=== PATIENT | female | born 1940 | race Caucasian/White ===

== ENCOUNTER 2017-09-01 13:31 | Emergency (ER) | payer MEDICARE ==
[~2017-09-01] VITALS: Ht 167.6 cm; Wt 68.0 kg
[~2017-09-01 13:31] MED LIST: APIX5TAB PO; ARMO60TA PO; ASPI325T PO; CALTTAB PO; CO Q100C PO; CODCAP PO; METO25 PO; OSTETAB3 PO; RANI300T PO; SIMV20 PO; THYR15 PO; VITA-83 PO; ZYRT10TA12 PO
[2017-09-01] MEDS ORDERED: IOHEXOL 350 MG/ML 10 ML VIAL (for RAD DIAG) IVCONTRAST ONE (13:32)
[2017-09-01 13:34] VITALS: BP 147/88; PULSE 106; RESP 20; TEMP 99.4; O2SAT 100
--- NOTE | 2017-09-01 14:42 | RADRPT ---
EXAM DATE/TIME: 09/01/2017 14:30 [facility] COMPARISON: CHEST PA & LAT, April 30, 2014, 12:58. INDICATIONS : Left shoulder and chest pain. MEDICAL HISTORY : None. SURGICAL HISTORY : Abdominal aortic aneurysm repair. ENCOUNTER: Initial ACUITY: 1 day PAIN SCORE: 10/10 LOCATION: Bilateral chest FINDINGS: PA and lateral views of the chest demonstrate the lungs to be symmetrically aerated without evidence of mass, infiltrate or effusion. The cardiomediastinal contours are unremarkable. Osseous structure s are intact. A scoliotic degenerative spine. CONCLUSION: No acute disease. Deng Orta Jr., MD on September 01, 2017 at 14:39 Board Certified Radiologist. This report was verified electronically.
--- NOTE | 2017-09-01 16:01 | PD ---
HPI Chief Complaint: Chest Pain Time Seen by Provider: 15:49 Travel History International Travel<30 days: No Contact w/Intl Traveler<30days: No Traveled to known affect area: No History of Present Illness HPI 77 year old female with history of afib s/p ablation and hypothyroidism presents to the ED for evaluation of left sided chest pain that radiates into her neck and her arm. She reports that 4 days ago, she was working out and woke up the next day with a pain in her left neck. She thought it was due to her work out, but it didn't seem like typical muscle pain as it came and went varying in intensity. The pain has increased and now involves her anterior left chest, shoulder, and neck. At rest it is a 4/10 but with movement or touch it is a 10/10, unbearable sharp pain. It is not accompanied with shortness of breath, lightheaded sensation, diaphoreses, or nausea. Denies any recent illness, fever, or chills. She has no other symptoms to report. PFSH Past Medical History Hx Anticoagulant Therapy: Yes (ELIQUIS) Atrial Fibrillation: Yes Blood Disorders: No Anxiety: No Depression: No Heart Rhythm Problems: Yes Cancer: Yes (SKIN CANCER) Cardiac Catheterization: No Cardiovascular Problems: Yes (CARDIOGENIC ABLATIONS) High Cholesterol: Yes Chemotherapy: No Chest Pain: Yes Congestive Heart Failure: No Cerebrovascular Accident: No Diabetes: No Diminished Hearing: No Endocrine: No Genitourinary: No Hypertension: No Immune Disorder: No Musculoskeletal: No Neurologic: No Psychiatric: No Reproductive: No Respiratory: No Immunizations Current: Yes Myocardial Infarction: No Radiation Therapy: No Sickle Cell Disease: No Thyroid Disease: Yes (hypo) Menopausal: Yes : 2 Para: 1 Miscarriage: 1 Tubal Ligation: Yes Past Surgical History Abdominal Surgery: No AICD: No Arteriovenous Shunt: No Cardiac Surgery: Yes (ABLATION R/T A-FIB) Coronary Artery Bypass Graft: No Endocrine Surgery: No Eye Surgery: No Genitourinary Surgery: No Gynecologic Surgery: No Insulin Pump: No Joint Replacement: No Oral Surgery: No Pacemaker: No Thoracic Surgery: No Other Surgery: Yes (COLONOSCOPY, TUMOR REMOVED FROM UNDER R. BREAST) Social History Alcohol Use: No Tobacco Use: No (QUIT 15 YEARS AGO ) Substance Use: No Allergies-Medications (Allergen,Severity, Reaction): Coded Allergies: levofloxacin (Verified Allergy, Severe, 10/18/17) prednisone (Verified Allergy, Severe, 09/01/17) Reported Meds & Prescriptions Reported Meds & Active Scripts Active Robaxin (Methocarbamol) 500 Mg Tab 500 Mg PO QID PRN Lortab (Hydrocodone-Acetaminophen) 5-325 Mg Tab 1 Tab PO Q6H PRN Reported [Omax 3] 1 Cap PO BID Protonix (Pantoprazole Sodium) 40 Mg Tab 40 Mg PO EVERY OTHER DAY [place] Thyroid (Thyroid) 90 Mg Tab 90 Mg PO DAILY Osteo Bi-Flex Regular Strength (Glucosamine-Chondroitin) 250-200 Tab 1 Tab PO BID Co Q-10 (Coenzyme Q10 (Ubidecarenone)) 100 Mg Cap 100 Mg PO DAILY Zyrtec (Cetirizine HCl) 10 Mg Tablet 10 Mg PO DAILY Calcium 600+D3 (Calcium Carbonate-Cholecalciferol) 600-200 Mg-Unit Tab 1 Tab PO DAILY Ascorbic Acid 500 Mg Tab 500 Mg PO HS Eliquis (Apixaban) 5 Mg Tab 5 Mg PO BID Review of Systems Except as stated in HPI: all other systems reviewed are Neg Physical Exam Narrative GENERAL: Well nourished female patient ambulatory and in no acute distress. SKIN: Warm and dry. No rashes or lesions. Focused skin assessment is with intact skin HEAD: Atraumatic. Normocephalic. EYES: Pupils equal and round. No scleral icterus. No injection or drainage. ENT: No nasal bleeding or discharge. Mucous membranes pink and moist. NECK: Trachea midline. No JVD. CARDIOVASCULAR: Regular rate and rhythm. RESPIRATORY: No accessory muscle use. Clear to auscultation. Breath sounds equal bilaterally. Hyperesthesia to touch of the anterior left chest and left neck. GASTROINTESTINAL: Abdomen soft, non-tender, nondistended. Hepatic and splenic margins not palpable. MUSCULOSKELETAL: Extremities without clubbing, cyanosis, or edema. No obvious deformities. 5 + equal strength bilateral extremities. NEUROLOGICAL: Awake and alert. No obvious cranial nerve deficits. Motor grossly within normal limits. Five out of 5 muscle strength in the arms and legs. Normal speech. PSYCHIATRIC: Appropriate mood and affect; insight and judgment normal. Data Data Last Documented VS Vital Signs Date Time Temp Pulse Resp B/P (MAP) Pulse Ox O2 Delivery O2 Flow Rate FiO2 09/01/17 20:35 09/01/17 19:21 88 18 97 Room Air 09/01/17 17:03 2.00 09/01/17 13:34 99.4 Orders Orders Electrocardiogram (09/01/17 13:48) Complete Blood Count With Diff (09/01/17 13:48) Basic Metabolic Panel (Bmp) (09/01/17 13:48) Ckmb (Isoenzyme) Profile (09/01/17 13:48) Troponin I (09/01/17 13:48) Iv Access Insert/Monitor (09/01/17 13:48) Ecg Monitoring (09/01/17 13:48) Oxygen Administration (09/01/17 13:48) Oximetry (09/01/17 13:48) Chest, Pa & Lat (09/01/17 13:48) Morphine Inj (Morphine Inj) (09/01/17 16:15) Morphine Inj (Morphine Inj) (09/01/17 16:15) Cta Thor Abd Aorta W Iv C W3d (09/01/17 ) Iohexol 350 Inj (Omnipaque 350 Inj) (09/01/17 13:32) Troponin I (09/01/17 18:36) Electrocardiogram (09/01/17 ) Ed Discharge Order (09/01/17 20:31) Labs Laboratory Tests Test 09/01/17 15:50 09/01/17 18:45 White Blood Count 8.9 TH/MM3 Red Blood Count 4.68 MIL/MM3 Hemoglobin 13.8 GM/DL Hematocrit 40.8 % Mean Corpuscular Volume 87.1 FL Mean Corpuscular Hemoglobin 29.5 PG Mean Corpuscular Hemoglobin Concent 33.9 % Red Cell Distribution Width 14.1 % Platelet Count 292 TH/MM3 Mean Platelet Volume 7.6 FL Neutrophils (%) (Auto) 74.0 % Lymphocytes (%) (Auto) 14.5 % Monocytes (%) (Auto) 9.8 % Eosinophils (%) (Auto) 1.0 % Basophils (%) (Auto) 0.7 % Neutrophils # (Auto) 6.6 TH/MM3 Lymphocytes # (Auto) 1.3 TH/MM3 Monocytes # (Auto) 0.9 TH/MM3 Eosinophils # (Auto) 0.1 TH/MM3 Basophils # (Auto) 0.1 TH/MM3 CBC Comment DIFF FINAL Differential Comment Blood Urea Nitrogen 22 MG/DL Creatinine 0.75 MG/DL Random Glucose 102 MG/DL Calcium Level 9.4 MG/DL Sodium Level 137 MEQ/L Potassium Level 4.1 MEQ/L Chloride Level 102 MEQ/L Carbon Dioxide Level 29.3 MEQ/L Anion Gap 6 MEQ/L Estimat Glomerular Filtration Rate 75 ML/MIN Total Creatine Kinase 88 U/L Troponin I LESS THAN 0.02 NG/ML LESS THAN 0.02 NG/ML MDM Medical Decision Making Medical Screen Exam Complete: Yes Emergency Medical Condition: Yes Medical Record Reviewed: Yes Differential Diagnosis musculoskeletal pain versus neuralgia versus cardiac etiology versus dissection Narrative Course 77 year old female presents to the ED for evaluation of left sided chest pain radiating to her neck and arm intermittent and worsening over the last 4 days. Pt appears well. She has significant tenderness to even the lightest palpation over the left anterior chest. I have discussed this with my attending who recommends moving forward with ruling out dissection. Laboratory Tests Test 09/01/17 15:50 09/01/17 18:45 White Blood Count 8.9 TH/MM3 Red Blood Count 4.68 MIL/MM3 Hemoglobin 13.8 GM/DL Hematocrit 40.8 % Mean Corpuscular Volume 87.1 FL Mean Corpuscular Hemoglobin 29.5 PG Mean Corpuscular Hemoglobin Concent 33.9 % Red Cell Distribution Width 14.1 % Platelet Count 292 TH/MM3 Mean Platelet Volume 7.6 FL Neutrophils (%) (Auto) 74.0 % Lymphocytes (%) (Auto) 14.5 % Monocytes (%) (Auto) 9.8 % Eosinophils (%) (Auto) 1.0 % Basophils (%) (Auto) 0.7 % Neutrophils # (Auto) 6.6 TH/MM3 Lymphocytes # (Auto) 1.3 TH/MM3 Monocytes # (Auto) 0.9 TH/MM3 Eosinophils # (Auto) 0.1 TH/MM3 Basophils # (Auto) 0.1 TH/MM3 CBC Comment DIFF FINAL Differential Comment Blood Urea Nitrogen 22 MG/DL Creatinine 0.75 MG/DL Random Glucose 102 MG/DL Calcium Level 9.4 MG/DL Sodium Level 137 MEQ/L Potassium Level 4.1 MEQ/L Chloride Level 102 MEQ/L Carbon Dioxide Level 29.3 MEQ/L Anion Gap 6 MEQ/L Estimat Glomerular Filtration Rate 75 ML/MIN Total Creatine Kinase 88 U/L Troponin I LESS THAN 0.02 NG/ML Last Impressions Chest X-Ray 09/01/17 1348 Signed Impressions: Service Date/Time: Friday, September 01, 2017 14:30 - CONCLUSION: No acute disease. Deng Orta Jr., MD Aorta CTA 09/01/17 0000 Signed Impressions: Service Date/Time: Friday, September 01, 2017 17:51 - CONCLUSION: Negative examination. Atherosclerotic calcifications in the abdominal aorta and iliac vessels with no evidence of aneurysm and no evidence of vascular dissection. Dhruv Washington MD Findings are discussed with the patient. I have also discussed with my attending. She has assessed the patient. We will move forward with a delta troponin and with that remaining negative, the patient will be discharged home to follow up with her primary care provider. The patient is in agreement with this plan of care. Diagnosis Primary Impression: Chest wall pain Additional Impression: Chest wall muscle strain Qualified Codes: S29.011A - Strain of muscle and tendon of front wall of thorax, initial encounter Referrals: Primary Care Physician Patient Instructions: General Instructions Departure Forms: Tests/Procedures Additional Instructions: Ice and/or warm receiving help alleviate symptoms Avoid activity that exacerbates pain Follow-up with primary care provider Return immediately if any acute worsening of symptoms Med/Other Pt SpecificInfo: Prescription(s) given Scripts Methocarbamol (Robaxin) 500 Mg Tab 500 MG PO QID Y for MUSCLE SPASM, #20 TAB 0 Refills Prov: Jailene Trejo 09/01/17 Hydrocodone-Acetaminophen (Lortab) 5-325 Mg Tab 1 TAB PO Q6H Y for PAIN GREATER THAN 6, #12 TAB 0 Refills Prov: Jailene Trejo 09/01/17 Disposition: 01 DISCHARGE HOME Condition: Stable Jailene Trejo Sep 01, 2017 16:01
[2017-09-01] MEDS ORDERED: MORPHINE SULFATE 4 MG/ML INJ IV PUSH ONE (16:15)
[2017-09-01] MEDS ORDERED: MORPHINE SULFATE 2 MG/ML INJ IV PUSH ONE (16:15)
[2017-09-01 16:17] LABS: AUTOMATED NEUTROPHIL # 6.6 TH/MM3 (1.8-7.7); BASOPHIL # 0.1 TH/MM3 (0-0.2); BASOPHIL % 0.7 % (0.0-2.0); EOSINOPHIL # 0.1 TH/MM3 (0-0.4); HEMATOCRIT 40.8 % (35.0-46.0); HEMO FLAGS DIFF FINAL; LYMPH % 14.5 % (9.0-44.0); LYMPHOCYTE # 1.3 TH/MM3 (1.0-4.8); MEAN CELL VOLUME 87.1 FL (80.0-100.0); MEAN CORPUSCULAR HEMOGLOBIN 29.5 PG (27.0-34.0); MEAN CORPUSCULAR HGB CONC 33.9 % (32.0-36.0); MONO % 9.8 % (0.0-8.0); PLATELET COUNT 292 TH/MM3 (150-450); RED BLOOD COUNT 4.68 MIL/MM3 (4.00-5.30); RED CELL DISTRIBUTION WIDTH 14.1 % (11.6-17.2); WHITE BLOOD COUNT 8.9 TH/MM3 (4.0-11.0)
[2017-09-01 16:40] LABS: ANION GAP 6 MEQ/L (5-15); BICARBONATE 29.3 MEQ/L (21.0-32.0); BLOOD UREA NITROGEN 22 MG/DL (7-18); CHLORIDE 102 MEQ/L (98-107); GLOMERULAR FILTRATION RATE 75 ML/MIN (>89); POTASSIUM 4.1 MEQ/L (3.5-5.1); SODIUM (NA) 137 MEQ/L (136-145)
[2017-09-01 16:57] LABS: CREATINE KINASE 88 U/L (26-192)
[2017-09-01 17:01] VITALS: BP 131/71; PULSE 67; RESP 15; O2SAT 100
[2017-09-01] MEDS ORDERED: CALC-197 PO (17:05)
[2017-09-01] MEDS ORDERED: APIX5TAB PO (17:05)
[2017-09-01] MEDS ORDERED: OSTETAB3 PO (17:05)
[2017-09-01] MEDS ORDERED: ARMO90TA PO (17:05)
[2017-09-01] MEDS ORDERED: OMAX PO (17:05)
[2017-09-01] MEDS ORDERED: CETI-1 PO (17:05)
[2017-09-01] MEDS ORDERED: COEN1CAP PO (17:05)
[2017-09-01] MEDS ORDERED: ASCO500T PO (17:05)
[2017-09-01] MEDS ORDERED: PROT40TA PO (17:05)
--- NOTE | 2017-09-01 18:15 | RADRPT ---
EXAM DATE/TIME: 09/01/2017 17:51 [facility] COMPARISON: CT ABDOMEN & PELVIS W CONTRAST, January 10, 2013, 2:25. CHEST PA & LAT, Aug alka2016, 14:30. INDICATIONS : Short of breath, aortic dissection. IV CONTRAST: 80 cc Omnipaque 350 (iohexol) IV RADIATION DOSE: 16.77 CTDIvol (mGy) MEDICAL HISTORY : Cardiovascular disease. Skin cancer. SURGICAL HISTORY : CABG Tubal ligation. ENCOUNTER: Initial ACUITY: 3 days PAIN SCALE: 4/10 LOCATION: Bilateral chest TECHNIQUE: Volumetric scanning was performed using a multi-row detector CT scanner. The data was post processed with a variety of visualization algorithms including full volume maximum intensity pr ojection, multi-planar sliding thin slab reformation, curved planar reformation, and surface renderin g techniques. Using automated exposure control and adjustment of the mA and/or kV according to patie nt size, radiation dose was kept as low as reasonably achievable to obtain optimal diagnostic quality images. DICOM format image data is available electronically for review and comparison. FINDINGS: LUNGS: There is no consolidation or pneumothorax. No concerning pulmonary nodule is visualized. No pleural fluid is present. MEDIASTINUM: No abnormally enlarged lymph nodes by CT criteria. No axillary or hilar abnormalitie s are identified. ABDOMEN: The liver and spleen are free of focal defects. The gallbladder and pancreas demonstrate no abnormality. The adrenal glands are normal. The kidneys demonstrate no evidence of solid renal ma ss or hydronephrosis. No free fluid or abdominal masses are identified. No para-aortic adenopathy is seen. PELVIS: No evidence of free fluid or pelvic mass. No abnormally enlarged inguinal or retroperiton eal lymph nodes are present. The bladder is unremarkable. THORACIC AORTA: The thoracic aortic root is normal with normal branching of the great vessels. There is no evidence of aneurysm or dissection. ABDOMINAL AORTA: The aorta is normal in caliber without aneurysm or dissection. The renal arteri es are patent bilaterally. The proximal celiac and superior mesenteric arteries are patent and patti l in diameter. SANIA is additionally appreciated is patent. There are vascular calcifications in the ab dominal aorta and iliac vessels with no evidence of stenosis PELVIC VESSELS: The internal iliac and external iliac vessels are patent without aneurysm or sten osis. CONCLUSION: Negative examination. Atherosclerotic calcifications in the abdominal aorta and iliac vessels with no evidence of aneurysm and no evidence of vascular dissection. Dhruv Washington MD on September 01, 2017 at 18:10 Board Certified Radiologist. This report was verified electronically.
[2017-09-01 19:21] VITALS: BP 105/65; PULSE 88; RESP 18; O2SAT 97
[2017-09-01] MEDS ORDERED: HYDR-3533 PO (20:30)
[2017-09-01] MEDS ORDERED: ROBA500T PO (20:31)
--- NOTE | 2017-09-02 11:32 | EKG ---
Date Performed: 09/01/2017 Time Performed: 14:05:14 PTAGE: 77 years EKG: Sinus rhythm NORMAL ECG Compared to prior tracing no significant change PREVIOUS TRACING : 06/23/2016 13.09 DOCTOR: Diallo Bush Interpretating Date/Time 09/02/2017 11:28:11
--- NOTE | 2017-09-02 11:32 | EKG ---
Date Performed: 09/01/2017 Time Performed: 18:52:09 PTAGE: 77 years EKG: Sinus rhythm NORMAL ECG Compared to prior tracing no significant change PREVIOUS TRACING : 09/01/2017 14.05 DOCTOR: Diallo Bush Interpretating Date/Time 09/02/2017 11:28:18
== END 2017-09-01 20:36 | disposition home or self-care (01) ==
LOC: NEPC 13:31
DX: R07.89 Other chest pain (principal); S29.011A Strain of muscle and tendon of front wall of thorax, initial encounter; I48.91 Unspecified atrial fibrillation; E03.9 Hypothyroidism, unspecified; Z79.01 Long term (current) use of anticoagulants
CPT/HCPCS: 71020; 71275; 74174; 80048; 82550; 84484; 85025; 93005; 96374; 99285; J2270; Q9967